=== PATIENT | male | born 1980 | race Two or more races ===

== ENCOUNTER → 2018-01-07 | Outpatient (CLI) | payer SELFPAY ==
[2018-01-07 07:47] LABS: COLLECTION METHOD DRY COLLECTION; SPECIMEN CONTAINER POLYPROPYLENE CUP; SPERM MORPHOLOGY SENT TO REFERENC LAB
[2018-01-07 09:02] LABS: COLLECTION SITE ON-SITE; DAYS ABSTINENT 3 DAYS (2-7); ROUND CELL CONC. 0.4 X10^6/mL (<5.1); SA DILUTION CNT 1 273; SA DILUTION CNT 2 303; SA DILUTION FACTOR 2; SA NONMOTILE CONCENTRATION 26.5 X10^6/mL; SA NONMOTILE COUNT1 242; SA NONMOTILE COUNT2 288; SA ROUND CELL COUNT1 3; SA ROUND CELL COUNT2 4; SA SPERM MOTILE CONC 31.1 X10^6mL; SEMEN TESTING TIME 815; SPERM CONCENTRATION 57.6 X10^6/mL (>12.0); TOTAL SPERM COUNT 126.7 X10^6 (>33.0)
[2018-01-07 09:03] LABS: SPERM PROGRESSION 4
== END ==
LOC: LAB 07:30
PROVIDERS: ATTEND Student in an Organized Health Care Education/Training Program
DX: N46.9 Male infertility, unspecified (principal)
CPT/HCPCS: 89320

== ENCOUNTER 2018-06-25 15:11 | Emergency (ER) | payer OTHER ==
[2018-06-25] MEDS ORDERED: KETOROLAC TROMETHAMINE 60 MG/2 ML SDV IM ONE (16:20)
[2018-06-25] MEDS ORDERED: GUAIFENESIN/CODEINE PHOS 100-10 MG/ 5 ML UDC PO ONE (16:20)
[2018-06-25] MEDS ORDERED: IPRATROPIUM/ALBUTEROL 0.5-2.5 MG/3 ML AMPUL NEB ONE (16:20)
--- NOTE | 2018-06-25 16:22 | ER Document Report ---
ED Respiratory Problem - General Chief Complaint: Painful Cough Stated Complaint: COUGH,VOMITING Time Seen by Provider: 06/25/18 16:14 Information source: Patient Notes: History of Present Illness Chief Complaint: [cough] Cough quality= [yellow green] sputum [] hemoptysis [ ] History obtained from [patient] 38 years old male presents today with nearly 2 weeks history of cough leading to chest wall pain whenever he coughed and also vomited couple of times when he was coughing. Currently having right flank pain 2. Denies any nausea vomiting now. Denies any fever chills. Denies any obvious wheezing. Denies any earache sore throat. Denies any abdominal pain Symptoms began: [past few days] Onset: [gradual] Timing: [constant, lasts hours, persists] Intensity: [moderate] Location: [respiratory tract] Radiation: [none] Migration: [none] Aggravating factors: [none] Relieving factors: [none] Review of Systems : All other systems negative as reviewed. CONSTITUTIONAL No Fever. EYES No eye pain. ENT No sore throat CARDIOVASCULAR No chest pain. RESPIRATORY No SOB, No wheezing, No orthopnea, No pedal edema. GI No abdominal pain, no vomiting, no diarrhea. GENITOURINARY No dysuria. SKIN No rash. NEUROLOGIC No headache. MUSCULOSKELETAL No back pain, No calf pain, No calf swelling Physical Exam CONSTITUTIONAL Vital signs reviewed, Patient has normal respiratory rate, Well appearing, Patient appears comfortable, normal stature. HEAD Atraumatic, Normocephalic. EYES Eyes are normal to inspection. ENT Ears normal to inspection, Nose examination normal. NECK No jugular venous distention. RESPIRATORY CHEST Diffuse anterior chest wall tenderness noted Breath sounds [normal], No respiratory distress. CARDIOVASCULAR RRR, No murmurs, Normal S1 S2, No rub, No gallop. ABDOMEN Abdomen is nontender, No masses, Bowel sounds normal, No distension, No peritoneal signs. BACK Normal inspection. UPPER EXTREMITY Inspection normal. LOWER EXTREMITY Inspection normal. NEURO No facial droop, normal speech. SKIN Skin is warm, Skin is dry, Skin is normal color. PSYCHIATRIC Normal affect. TRAVEL OUTSIDE OF THE [place] IN LAST 30 DAYS: No - HPI Notes: Dictated - Related Data Allergies/Adverse Reactions: No Known Allergies Allergy (Verified 06/25/18 16:09) Past Medical History - Social History Smoking Status: Never Smoker Chew tobacco use (# tins/day): No Frequency of alcohol use: Rare Drug Abuse: None Lives with: Family Family History: Reviewed & Not Pertinent Review of Systems - Review of Systems Notes: Dictated Physical Exam - Vital signs Vitals: Temp Pulse Resp BP Pulse Ox 98.3 F 97 16 128/96 H 97 06/25/18 15:43 06/25/18 15:43 06/25/18 15:43 06/25/18 15:43 06/25/18 15:43 - Notes Notes: Dictated Course - Vital Signs Vital signs: Temp Pulse Resp BP Pulse Ox 98.3 F 97 16 128/96 H 97 06/25/18 15:43 06/25/18 15:43 06/25/18 15:43 06/25/18 15:43 06/25/18 15:43 - Laboratory Laboratory results interpreted by me: 06/25/18 16:36 Urine Ascorbic Acid 40 H - Diagnostic Test Radiology reviewed: Reports reviewed - X-rays reported by radiologist as normal Discharge - Discharge Clinical Impression: Bronchitis, Acute chest wall pain Condition: Fair Disposition: HOME, SELF-CARE Instructions: Chest Wall Pain ([facility]) Prescriptions: Tramadol HCl [Ultram 50 mg Tablet] 50 mg PO Q6HP PRN #14 tablet PRN Reason: Albuterol Sulfate [Proair HFA Inhalation Aerosol 8.5 gm MDI] 2 puff IH Q4H PRN # 1 mdi PRN Reason: Baclofen [Baclofen 20 Mg Tablet] 20 mg PO TID #30 tablet Prednisone 10 mg PO ASDIR PRN #1 tab.ds.pk PRN Reason: Referrals: DWAYNE ACOSTA MD [ACTIVE STAFF] - Follow up as needed
[2018-06-25 17:05] LABS: APPEARANCE,URINE CLEAR; BILIRUBIN,URINE NEGATIVE (NEGATIVE); COLOR,URINE YELLOW; GLUCOSE, URINE NEGATIVE (NEGATIVE); KETONES,URINE NEGATIVE (NEGATIVE); LEUKOCYTE ESTERASE,URINE NEGATIVE (NEGATIVE); NITRITE,URINE NEGATIVE (NEGATIVE); PROTEIN,URINE NEGATIVE (NEGATIVE); URINE SPECIFIC GRAVITY 1.028; UROBILINOGEN,URINE NEGATIVE mg/dL (<2.0)
--- NOTE | 2018-06-25 17:25 | RADIOLOGY REPORT (SQ) ---
EXAM DESCRIPTION: CHEST 2 VIEWS COMPLETED DATE/TIME: 06/25/2018 5:16 pm REASON FOR STUDY: cough COMPARISON: None. EXAM PARAMETERS: NUMBER OF VIEWS: two views TECHNIQUE: Digital Frontal and Lateral radiographic views of the chest acquired. RADIATION DOSE: NA LIMITATIONS: none FINDINGS: LUNGS AND PLEURA: No opacities, masses or pneumothorax. No pleural effusion. MEDIASTINUM AND HILAR STRUCTURES: No masses or contour abnormalities. HEART AND VASCULAR STRUCTURES: Heart normal size. No evidence for failure. BONES: No acute findings. HARDWARE: None in the chest. OTHER: No other significant finding. IMPRESSION: NO ACUTE RADIOGRAPHIC FINDING IN THE CHEST. TECHNICAL DOCUMENTATION: JOB ID: [id number] [employer]- All Rights Reserved Reading location - IP/workstation name: [email or web address]
[2018-06-25] MEDS ORDERED: GLYCERIN (PEDIATRIC) SUPP.RECT PR ONE (18:05)
[2018-06-25 18:27] VITALS: BP 127/90
== END 2018-06-25 18:27 | disposition home or self-care (01) ==
LOC: ER 15:11
DX: J40 Bronchitis, not specified as acute or chronic (principal); R07.89 Other chest pain; R05 Cough; R11.10 Vomiting, unspecified
CPT/HCPCS: 94640; 99283; 96372; 81001; 71046; J1885; J7620

== ENCOUNTER 2018-09-17 17:25 | Emergency (ER) | payer OTHER ==
--- NOTE | 2018-09-17 18:33 | ER Document Report ---
ED Medical Screen (RME) - General Chief Complaint: Cough Stated Complaint: CHEST PAIN Time Seen by Provider: 09/17/18 18:24 Primary Care Provider: KRYSTLE MITCHELL [Primary Care Provider] - Follow up as needed Notes: 38-year-old male patient comes emerged from complaining of cough for about 3 months. There is pain in the chest with a deep breath. He was seen here on 06/25/2018 discharged with albuterol, prednisone, Ultram, and baclofen. He states the medication had no effect on his symptoms. It is a nonproductive cough. He is not a smoker. There is no history of fever. He is not on any regular med occasions. I have greeted and performed a rapid initial assessment of this patient. A comprehensive ED assessment and evaluation of the patient, analysis of test results and completion of the medical decision making process will be conducted by additional ED providers. TRAVEL OUTSIDE OF THE [place] IN LAST 30 DAYS: No - Related Data Allergies/Adverse Reactions: No Known Allergies Allergy (Verified 09/17/18 17:29) Past Medical History Renal/ Medical History: Denies: Hx Peritoneal Dialysis Past Surgical History: Reports: Hx Orthopedic Surgery Physical Exam - Vital signs Vitals: Temp Pulse Resp BP Pulse Ox 98.6 F 107 H 18 143/99 H 98 09/17/18 17:32 09/17/18 17:32 09/17/18 17:32 09/17/18 17:32 09/17/18 17:32 Course - Vital Signs Vital signs: Temp Pulse Resp BP Pulse Ox 98.6 F 107 H 18 143/99 H 98 09/17/18 17:32 09/17/18 17:32 09/17/18 17:32 09/17/18 17:32 09/17/18 17:32 Doctor's Discharge - Discharge Referrals: STEPHEN,KRYSTLE [Primary Care Provider] - Follow up as needed
--- NOTE | 2018-09-17 18:53 | RADIOLOGY REPORT (SQ) ---
EXAM DESCRIPTION: CHEST 2 VIEWS COMPLETED DATE/TIME: 09/17/2018 6:39 pm REASON FOR STUDY: cough X 3 months, non-smoker COMPARISON: 06/25/2018 EXAM PARAMETERS: NUMBER OF VIEWS: two views TECHNIQUE: Digital Frontal and Lateral radiographic views of the chest acquired. RADIATION DOSE: NA LIMITATIONS: none FINDINGS: LUNGS AND PLEURA: No opacities, masses or pneumothorax. No pleural effusion. MEDIASTINUM AND HILAR STRUCTURES: No masses or contour abnormalities. HEART AND VASCULAR STRUCTURES: Heart normal size. No evidence for failure. BONES: No acute findings. HARDWARE: None in the chest. OTHER: No other significant finding. IMPRESSION: NO ACUTE RADIOGRAPHIC FINDING IN THE CHEST. TECHNICAL DOCUMENTATION: JOB ID: [id number] [employer]- All Rights Reserved Reading location - IP/workstation name: [email or web address]
[2018-09-17 19:37] LABS: ABSOLUTE BASOPHILS # (AUTO) 0.1 10^3/uL (0.0-0.2); ABSOLUTE EOSINOPHILS # (AUTO) 0.1 10^3/uL (0.0-0.6); ABSOLUTE LYMPHOCYTES (AUTO) 2.4 10^3/uL (0.5-4.7); ABSOLUTE MONOCYTES (AUTO) 0.6 10^3/uL (0.1-1.4); ABSOLUTE NEUT (AUTO) 6.7 10^3/uL (1.7-8.2); BASOPHILS % (AUTO) 0.6 % (0-2); EOSINOPHILS % (AUTO) 1.4 % (0-6); HEMATOCRIT 48.3 % (37.9-51.0); HEMOGLOBIN 17.2 g/dL (13.5-17.0); LYMPHOCYTES % (AUTO) 24.4 % (13-45); MEAN CORPUSCULAR HEMOGLOBIN 30.3 pg (27.0-33.4); MEAN CORPUSCULAR HGB CONC 35.6 g/dL (32.0-36.0); MEAN CORPUSCULAR VOLUME 85 fl (80-97); MONOCYTES % (AUTO) 5.6 % (3-13); PLATELET COUNT 248 10^3/uL (150-450); RED BLOOD COUNT 5.66 10^6/uL (4.35-5.55); TOTAL CELLS COUNTED % (AUTO) 100 %; WHITE BLOOD COUNT 9.9 10^3/uL (4.0-10.5)
[2018-09-17 19:52] LABS: ALANINE AMINOTRANSFERASE 177 U/L (21-72); ALBUMIN 4.9 g/dL (3.5-5.0); ALKALINE PHOSPHATASE 80 U/L (38-126); ANION GAP 12 (5-19); ASPARTATE AMINO TRANSFERASE 112 U/L (17-59); BILIRUBIN,DIRECT 0.2 mg/dL (0.0-0.4); BILIRUBIN,TOTAL 0.6 mg/dL (0.2-1.3); BLOOD UREA NITROGEN 15 mg/dL (7-20); CALCIUM 9.7 mg/dL (8.4-10.2); CARBON DIOXIDE 24 mmol/L (22-30); CHLORIDE 104 mmol/L (98-107); CREATINE KINASE 433 U/L (55-170); GLUCOSE 135 mg/dL (75-110); POTASSIUM 3.9 mmol/L (3.6-5.0); SODIUM 139.6 mmol/L (137-145); TOTAL PROTEIN 7.9 g/dL (6.3-8.2)
[2018-09-17] MEDS ORDERED: ALBUTEROL SULFATE 0.083% NEB 2.5 MG/3 ML AMPUL NEB ONE (21:58)
--- NOTE | 2018-09-17 21:58 | ER Document Report ---
ED General - General Chief Complaint: Cough Stated Complaint: CHEST PAIN Time Seen by Provider: 09/17/18 18:24 Primary Care Provider: KRYSTLE MITCHELL [Primary Care Provider] - Follow up as needed Notes: 38-year-old male to the emergency department chief complaint of cough chest pain. Shortness of breath. Patient states that he was seen here 12 weeks ago. Was prescribed muscle relaxants and prednisone and albuterol. Symptoms have persisted. Occasionally does cough up blood. Has some central chest pain time now have some left posterior chest pain as well. Denies any prior history of blood clots. Father of a brain aneurysm and had a workup for that which was reportedly negative. Patient is currently disabled due to his service. No recent long trips or travel. No travel outside [place]. No known exposures to tuberculosis. Has tested negative for TB in the past. TRAVEL OUTSIDE OF THE [place] IN LAST 30 DAYS: No - HPI Onset/Duration: Constant, Waxing and waning Quality of pain: Achy Severity: Moderate Pain Level: 2 Associated symptoms: Chest pain, Nonproductive cough, Hurts to breath, Shortness of breath. denies: Fever - Related Data Allergies/Adverse Reactions: No Known Allergies Allergy (Verified 09/17/18 17:29) Past Medical History - General Information source: Patient - Social History Smoking Status: Never Smoker Chew tobacco use (# tins/day): No Frequency of alcohol use: None Lives with: Spouse/Significant other Family History: Reviewed & Not Pertinent Patient has suicidal ideation: No Patient has homicidal ideation: No Renal/ Medical History: Denies: Hx Peritoneal Dialysis Past Surgical History: Reports: Hx Orthopedic Surgery Review of Systems - Review of Systems Notes: Constitutional: denies: Chills, Diaphoresis, Fever, Malaise, Weakness EENT: denies: Eye discharge, Blurred vision, Tearing, Double vision, Nose congestion, Nose discharge, Throat swelling, Mouth pain Cardiovascular: denies: Palpitations, Heart racing, Orthopnea, +Dyspnea, +Chest pain Respiratory: +Cough, Hurts to breathe, +Wheezing, +Shortness of breath Gastrointestinal: denies: Abdominal pain, Diarrhea, Nausea, Vomiting, Black stools, bright red blood in stool Genitourinary: denies: Burning, Dysuria, Discharge, Frequency, Flank pain, Hematuria Musculoskeletal: denies: Joint pain, Joint swelling, Muscle pain, Muscle stiffness, back pain Hematologic/Lymphatic: denies: Anemia, Easy bleeding, Easy bruising, Blood clots Neurological/Psychological: denies: Confusion, Dementia, Depression, Loss of consciousness Skin: No lesions, no masses, no skin breakdown, no abscesses Physical Exam - Vital signs Vitals: Temp Pulse Resp BP Pulse Ox 98.6 F 107 H 18 143/99 H 98 09/17/18 17:32 09/17/18 17:32 09/17/18 17:32 09/17/18 17:32 09/17/18 17:32 Interpretation: Tachycardic - General General appearance: Appears well, Alert - HEENT Head: Normocephalic, Atraumatic Eyes: Normal Pupils: PERRL - Respiratory Respiratory status: No respiratory distress Chest status: Nontender Breath sounds: Nonproductive cough. No: Rales, Rhonchi, Stridor, Wheezing Chest palpation: Normal - Cardiovascular Rhythm: Tachycardia Heart sounds: Normal auscultation Murmur: No - Abdominal Inspection: Normal Distension: No distension Bowel sounds: Normal Tenderness: Nontender Organomegaly: No organomegaly - Back Back: Normal, Nontender - Extremities General upper extremity: Normal inspection, Nontender, Normal color, Normal ROM, Normal temperature General lower extremity: Normal inspection, Nontender, Normal color, Normal ROM, Normal temperature, Normal weight bearing. No: Shayna's sign - Neurological Neuro grossly intact: Yes Cognition: Normal Orientation: AAOx4 [place] Coma Scale Eye Opening: Spontaneous Eduardo Coma Scale Verbal: Oriented [place] Coma Scale Motor: Obeys Commands [place] Coma Scale Total: 15 Speech: Normal Motor strength normal: LUE, RUE, LLE, RLE Sensory: Normal - Psychological Associated symptoms: Normal affect, Normal mood - Skin Skin Temperature: Warm Skin Moisture: Dry Skin Color: Normal Course - Re-evaluation Re-evalutation: 09/17/18 23:38 Patient feels a little bit better. Still has cough. Chest x-ray is unremarkable. EKG does not show any significant signs of ischemia and is not having convincing signs of myocardial ischemia. Has no risk factors. Does not smoke. No family history. At this time I am going to start patient on some prednisone, albuterol, antibiotic and some cough medication. Patient has incidental LFTs so adding hepatitis panel. Patient has been instructed to follow-up with his primary care doctor on Saturday or return for any worsening symptoms or concerns. - Vital Signs Vital signs: Temp Pulse Resp BP Pulse Ox 98.6 F 107 H 18 143/99 H 98 09/17/18 17:32 09/17/18 17:32 09/17/18 17:32 09/17/18 17:32 09/17/18 17:32 - Laboratory Result Diagrams: 09/17/18 19:26 09/17/18 19:26 Laboratory results interpreted by me: 09/17/18 09/17/18 09/17/18 18:29 19:26 19:26 RBC 5.66 H Hgb 17.2 H Glucose 135 H POC Glucose 141 H AST 112 H ALT 177 H Creatine Kinase 433 H - EKG Interpretation by Me EKG shows normal: Sinus rhythm, [place], Intervals, QRS Complexes, ST-T Waves - She does have some T wave inversions in V5 and V6 as well as aVF Discharge - Discharge Clinical Impression: Chronic coughing, Elevated liver enzymes Condition: Good Disposition: HOME, SELF-CARE Instructions: Bronchitis ([facility]) Additional Instructions: It is uncertain what is the underlying cause of your cough. At this time we have decided to go ahead and treat you with some steroids, bronchodilators, cough suppressant as well as a antibiotic to cover common lung pathogens in the event that this is a bacterial infection. Another possibility is that you could be having some reflux causing irritation in the airway. It may be beneficial that you take an antacid such as Zantac or Pepcid twice a day as well as we begin this treatment. You also have some abnormal liver tests which were performed today. This will need repeat evaluation by your primary care doctor. In the event that you develop any worsening symptoms or concerns please return and we will reevaluate you. Prescriptions: Albuterol Sulfate [Proventil 0.5% Neb 2.5 mg/0.5 ml Vial.neb] 2.5 mg NEB Q6H PRN 7 Days #25 vial.neb PRN Reason: Albuterol Sulfate [Proair HFA Inhalation Aerosol 8.5 gm MDI] 2 puff IH Q4H PRN 7 Days #1 mdi PRN Reason: Amoxicillin Trihydrate [Amoxil 500 mg Capsule] 500 mg PO TID 10 Days #30 capsule Ibuprofen [Motrin 800 mg Tablet] 800 mg PO Q8H PRN 10 Days #30 tab PRN Reason: Prednisone [Deltasone 20 mg Tablet] 60 mg PO DAILY 5 Days #15 tablet Referrals: [facility] [Primary Care [facility]] - Follow up as needed
[2018-09-17] MEDS ORDERED: BENZONATATE 100 MG CAPSULE PO ONE (21:59)
[2018-09-17] MEDS ORDERED: IBUPROFEN 800 MG TABLET PO ONE (22:52)
[2018-09-17] MEDS ORDERED: HYDROCODONE/ACETAMINOPHEN 5-325 MG (6 TAB/ER DISP) PO PRN (23:55)
[2018-09-18 00:06] VITALS: BP 135/81
--- NOTE | 2018-09-18 08:07 | EKG REPORT ---
SEVERITY:- BORDERLINE ECG - SINUS RHYTHM BORDERLINE T ABNORMALITIES, DIFFUSE LEADS : Confirmed by: Lauren Barrett MD 18-Sep-2018 08:06:01
[2018-09-19 08:41] LABS: HEPATITIS A AB IGM Negative (Negative); HEPATITIS B CORE AB IGM Negative (Negative); HEPATITS B SURFACE ANTIGEN Negative (Negative)
[2018-09-19 10:18] LABS: HEPATITIS C VIRUS ANTIBODY <0.1 s/co ratio (0.0-0.9)
== END 2018-09-18 00:02 | disposition home or self-care (01) ==
LOC: ER 17:25
DX: R05 Cough (principal); R74.8 Abnormal levels of other serum enzymes; R07.9 Chest pain, unspecified; R06.02 Shortness of breath
CPT/HCPCS: 36415; 71046; 80053; 80074; 82550; 82962; 83690; 84484; 85025; 85379; 93005; 93010; 94640; 99284

== ENCOUNTER 2019-10-30 18:48 | Emergency (ER) | payer OTHER ==
[2019-10-30] MEDS ORDERED: ASPIRIN 81 MG TABLET, CHEWABLE PO ONE (19:29)
--- NOTE | 2019-10-30 19:36 | ER Document Report ---
ED Medical Screen (RME) - General Chief Complaint: Congestion Stated Complaint: COUGH,CONGESTION Time Seen by Provider: 10/30/19 19:25 Primary Care Provider: KRYSTLE MITCHELL [Primary Care Provider] - Follow up as needed Mode of Arrival: Ambulatory Information source: Patient Notes: 39-year-old male presented to ED for complaint of cough and congestion for 2 days. He states yesterday he started with fever increased cough and body aches all over. He states about 8 PM last night he started having severe pain to the left side of his chest. He states that he called 911 they came to his house and did a EKG and told him that his EKG was borderline and that he could go to the emergency room or if he could stay home. He states since they told him he did need to go to the emergency room he stayed home. He states the pain went from his left side of his chest up into her shoulder. He states he had no pain on his right side of his chest. He states he does have a history of GERD low back pain neck pain left wrist and ankle pain right with surgery migraines and adjustment disorder. He is maybe 2 times a year and does not smoke or use illicit drugs. He is a [employer] with disability. He states the chest pain was off and on during the night and he still has the chest pain into his left shoulder. I have greeted and performed a rapid initial assessment of this patient. A comprehensive ED assessment and evaluation of the patient, analysis of test results and completion of medical decision making process will be conducted by an additional ED providers. TRAVEL OUTSIDE OF THE [place] IN LAST 30 DAYS: No - Related Data Allergies/Adverse Reactions: No Known Allergies Allergy (Verified 09/17/18 17:29) Past Medical History Renal/ Medical History: Denies: Hx Peritoneal Dialysis Past Surgical History: Reports: Hx Orthopedic Surgery Physical Exam - Vital signs Vitals: Temp Pulse Resp BP Pulse Ox 97.9 F 96 20 144/105 H 97 10/30/19 18:52 10/30/19 18:52 10/30/19 18:52 10/30/19 18:52 10/30/19 18:52 Course - Vital Signs Vital signs: Temp Pulse Resp BP Pulse Ox 97.9 F 96 20 144/105 H 97 10/30/19 18:52 10/30/19 18:52 10/30/19 18:52 10/30/19 18:52 10/30/19 18:52 Doctor's Discharge - Discharge Referrals: [facility] [Primary Care [facility]] - Follow up as needed
[2019-10-30 20:19] LABS: ABSOLUTE MONOCYTES (AUTO) 1.1 10^3/uL (0.1-1.4); ABSOLUTE NEUT (AUTO) 6.9 10^3/uL (1.7-8.2); BASOPHILS % (AUTO) 0.1 % (0-2); EOSINOPHILS % (AUTO) 0.1 % (0-6); HEMATOCRIT 46.7 % (37.9-51.0); HEMOGLOBIN 16.3 g/dL (13.5-17.0); LYMPHOCYTES % (AUTO) 10.8 % (13-45); MEAN CORPUSCULAR HEMOGLOBIN 30.3 pg (27.0-33.4); MEAN CORPUSCULAR HGB CONC 34.9 g/dL (32.0-36.0); MEAN CORPUSCULAR VOLUME 87 fl (80-97); MONOCYTES % (AUTO) 11.8 % (3-13); PLATELET COUNT 229 10^3/uL (150-450); RED BLOOD COUNT 5.37 10^6/uL (4.35-5.55); SEGMENTED NEUTROPHILS % (AUTO) 77.2 % (42-78); TOTAL CELLS COUNTED % (AUTO) 100 %
[2019-10-30 20:21] LABS: APPEARANCE,URINE CLEAR; BILIRUBIN,URINE NEGATIVE (NEGATIVE); COLOR,URINE YELLOW; GLUCOSE, URINE NEGATIVE (NEGATIVE); KETONES,URINE NEGATIVE (NEGATIVE); PROTEIN,URINE 30 mg/dL (NEGATIVE); URINE SPECIFIC GRAVITY 1.027; UROBILINOGEN,URINE NEGATIVE mg/dL (<2.0)
[2019-10-30 20:28] LABS: ALBUMIN 4.7 g/dL (3.5-5.0); ALKALINE PHOSPHATASE 89 U/L (38-126); ANION GAP 14 (5-19); ASPARTATE AMINO TRANSFERASE 37 U/L (17-59); BILIRUBIN,DIRECT 0.3 mg/dL (0.0-0.4); BILIRUBIN,TOTAL 0.5 mg/dL (0.2-1.3); BLOOD UREA NITROGEN 16 mg/dL (7-20); CALCIUM 9.5 mg/dL (8.4-10.2); CARBON DIOXIDE 21 mmol/L (22-30); CHLORIDE 103 mmol/L (98-107); GLUCOSE 140 mg/dL (75-110); POTASSIUM 4.2 mmol/L (3.6-5.0); TOTAL PROTEIN 8.4 g/dL (6.3-8.2)
[2019-10-30 20:32] LABS: A TYPE INFLUENZA AG POSITIVE (NEGATIVE); B INFLUENZA AG NEGATIVE (NEGATIVE)
--- NOTE | 2019-10-30 20:38 | RADIOLOGY REPORT (SQ) ---
EXAM DESCRIPTION: PA and lateral radiograph of the chest CLINICAL HISTORY: 39 years Male, chest pain to left shoulder COMPARISON: Two views of the chest September 17, 2018 FINDINGS: Lungs: Lungs are clear. No pneumonia or edema. No pneumothorax or pleural effusion. Mediastinum: Cardiac and mediastinal silhouette are normal. Bones: Osseous structures are normal. IMPRESSION: No acute process. No significant interval change.
--- NOTE | 2019-10-30 22:19 | EKG REPORT ---
SEVERITY:- ABNORMAL ECG - SINUS RHYTHM NONSPECIFIC T ABNORMALITIES, INFERIOR LEADS : Confirmed by: Maurizio Morris MD 30-Oct-2019 22:19:00
[2019-10-31 00:55] VITALS: BP 128/81
--- NOTE | 2019-11-02 05:53 | ER Document Report ---
Entered by CHE PENDLETON SCRIBE 10/31/19 0002 Acting as scribe for:KVNG SERRANO IV, MD ED General - General Chief Complaint: Chest Pain Stated Complaint: COUGH,CONGESTION Time Seen by Provider: 10/30/19 19:25 Primary Care Provider: STEPHEN,KRYSTLE [Primary Care Provider] - Follow up as needed Mode of Arrival: Ambulatory Information source: Patient Notes: This 39 year old male patient presents to the emergency department today with complaints of flu-like symptoms including nasal congestion, fevers, chills, generalized body aches, and a non productive cough. Patient states the cough began two days ago and then yesterday when he woke up he "felt much worse," stating that the other symptoms began at that time. Patient reports that he has tessalon perles at home from a previous illness and it has helped his cough somewhat. TRAVEL OUTSIDE OF THE [place] IN LAST 30 DAYS: No - Related Data Allergies/Adverse Reactions: No Known Allergies Allergy (Verified 09/17/18 17:29) Home Medications: denies Past Medical History - General Information source: Patient - Social History Smoking Status: Never Smoker Cigarette use (# per day): No Chew tobacco use (# tins/day): No Frequency of alcohol use: Rare Drug Abuse: None Occupation: Realtor Lives with: Family Family History: Reviewed & Not Pertinent Patient has suicidal ideation: No Patient has homicidal ideation: No Renal/ Medical History: Denies: Hx Peritoneal Dialysis Past Surgical History: Reports: Hx Orthopedic Surgery Review of Systems - Review of Systems Constitutional: See HPI, Chills, Fever EENT: See HPI, Nose congestion Cardiovascular: No symptoms reported Respiratory: See HPI, Cough Gastrointestinal: No symptoms reported Genitourinary: No symptoms reported Male Genitourinary: No symptoms reported Musculoskeletal: See HPI, Muscle pain Skin: No symptoms reported Hematologic/Lymphatic: No symptoms reported Neurological/Psychological: No symptoms reported -: Yes All other systems reviewed and negative Physical Exam - Vital signs Vitals: Temp Pulse Resp BP Pulse Ox 97.9 F 96 20 144/105 H 97 10/30/19 18:52 10/30/19 18:52 10/30/19 18:52 10/30/19 18:52 10/30/19 18:52 - Notes Notes: Physical Exam: General: Alert, appears uncomfortable. HEENT: Normocephalic. Atraumatic. PERRL. Extraocular movements intact. Oropharyn x clear. Neck: Supple. Non-tender. Respiratory: Non-productive cough. No respiratory distress. Clear and equal breath sounds bilaterally. Cardiovascular: Regular rate and rhythm. Abdominal: Normal Inspection. Non-tender. No distension. Normal Bowel Sounds. Back: No gross abnormalities. Extremities: Moves all four extremities. Upper extremities: Normal inspection. Normal ROM. Lower extremities: Normal inspection. No edema. Normal ROM. Neurological: Normal cognition. AAOx4. Normal speech. Psychological: Normal affect. Normal Mood. Skin: Warm. Dry. Normal color. Course - Re-evaluation Re-evalutation: 10/31/19 00:26 Results of ED MSE discussed with patient. All questions were answered prior to discharge. Emergency signs and symptoms, reasons to return to the emergency department discussed with patient. - Vital Signs Vital signs: Temp Pulse Resp BP Pulse Ox 98.5 F 100 18 128/81 H 97 10/31/19 01:04 10/31/19 01:04 10/31/19 01:04 10/31/19 01:04 10/31/19 01:04 - Laboratory Result Diagrams: 10/30/19 19:55 10/30/19 19:55 Laboratory results interpreted by me: 10/30/19 10/30/19 10/30/19 19:55 19:55 19:55 Lymph % (Auto) 10.8 L Carbon Dioxide 21 L Glucose 140 H ALT 51 H Total Protein 8.4 H Urine Protein 30 H - Diagnostic Test Radiology reviewed: Reports reviewed Discharge - Discharge Clinical Impression: Influenza A Condition: Good Disposition: HOME, SELF-CARE Instructions: Influenza ([facility]) [id number] Additional Instructions: Return to the Emergency Department without delay if any worse. HOME CARE INSTRUCTIONS & INFORMATION: Thank you for choosing us for your medical needs. We hope you're satisfied with the care you received. After you leave, you must properly care for your problem and, at the same time, observe its progress. Any condition can change. Some illnesses can change rapidly over hours or days. If your condition worsens, return to the Emergency Department or see your physician promptly. ABOUT YOUR X-RAYS AND EKG'S: If you had an EKG or X-rays taken, they have been read by the Emergency Physician. The X-rays and EKG's will also be read by a Radiologist or Automatic Casting Machine Operator within 24 hours. If discrepancies are noted, you will be notified by telephone. Please be certain the ED has a correct telephone number & address where you can be reached. Also, realize that some fractures or abnormalities do not show up on initial X-rays. If your symptoms continue, see your physician. ABOUT YOUR LABORATORY TEST: If you had laboratory tests, the results have been reviewed by the Emergency Physician. Some test results (for example cultures) may not be available for several days. You will be contacted if any test result shows you need additional treatment. Please be certain the ED has a correct telephone number and address where you can be reached. ABOUT YOUR MEDICATIONS: You will receive instructions on how to take your medicine on the prescription label you receive. Additional information may be provided by the Pharmacy. If you have questions afterwards, call the ED for clarification or further instructions. Some prescribed medications may cause drowsiness. Do not perform tasks such as driving a car or operating machinery without consulting your Pharmacist. If you feel you need a refill of pain medication, your condition will need re-evaluation. Please do not call for a refill of any medication. ABOUT YOUR SIGNATURE: Signature of this document acknowledges to followin. Understanding that you received emergency treatment and that you may be released before al medical problems are known or treated. Please be certain the ED has a correct phone number & address where you can be reached. 2. Acknowledgement that you will arrange for follow-up care as recommended. 3. Authorization for the Emergency Physician to provide information to your f ollow-up Physician in order to maximize your care. AT ANY TIME, IF YOUR SYMPTOMS CHANGE SIGNIFICANTLY OR WORSEN OR YOU DEVELOP NEW SYMPTOMS, RETURN TO THE EMERGENCY DEPARTMENT IMMEDIATELY FOR RE-EVALUATION. OUR GOAL IS TO PROVIDE EXCELLENT MEDICAL CARE! WE HOPE THAT WE HAVE MET YOUR EXPECTATIONS DURING YOUR EMERGENCY DEPARTMENT VISIT AND THAT YOU FEEL YOU HAVE RECEIVED EXCELLENT CARE! Referrals: [facility] [Primary Care Provider] - Follow up as needed I personally performed the services described in the documentation, reviewed and edited the documentation which was dictated to the scribe in my presence, and it accurately records my words and actions.
== END 2019-10-31 01:03 | disposition home or self-care (01) ==
LOC: ER 18:48
DX: J11.1 Influenza due to unidentified influenza virus with other respiratory manifestations (principal); M79.10 Myalgia, unspecified site; R07.9 Chest pain, unspecified; R05 Cough; R50.9 Fever, unspecified
CPT/HCPCS: 36415; 71046; 80053; 81001; 84484; 85025; 87070; 87804; 87880; 93005; 93010; 99285

== ENCOUNTER 2020-04-14 15:31 | Emergency (ER) | payer OTHER ==
[2020-04-14 16:07] LABS: VENOUS BLOOD BASE EXCESS -3.2 mmol/L; VENOUS BLOOD PH 7.43 (7.30-7.42)
--- NOTE | 2020-04-14 16:07 | ER Document Report ---
ED General - General Chief Complaint: Nausea/Vomiting Stated Complaint: NAUSEA/VOMITING/POSSIBLE DEHYDRATION Time Seen by Provider: 04/14/20 15:34 Primary Care Provider: STEPHEN,KRYSTLE [Primary Care Provider] - Follow up as needed TRAVEL OUTSIDE OF THE [place] IN LAST 30 DAYS: No - HPI Notes: Patient is a 39-year-old male, with known COVID-19, who presents to the emergency department for evaluation of dizziness, vomiting, diarrhea. He started having symptoms 8 days ago. He was tested on Saturday, told he was positive on Saturday. He developed initially a dry cough, followed by chills and vomiting, then diarrhea. He states he has had 4 episodes of nonbloody, nonbilious emesis, 3 episodes of watery diarrhea in the last 24 hours. Prior to calling EMS, he states he "could not see." EMS found his initial blood pressure to be in the 50s. He was given nearly 2 L of lactated Ringer's in the field, as well as some Zofran, and he presents here for further evaluation. When asked about pain, the patient simply states "it feels like everything hurts." He states he feels like his body is a "raw nerve." He is still urinating. He really is not having much in the way of shortness of breath. He states he has lost his sense of smell and taste. He also notes a rash to his anterior ankles that started for 5 days ago. He states it itches. He denies any new contacts. - Related Data Allergies/Adverse Reactions: No Known Allergies Allergy (Verified 09/17/18 17:29) Past Medical History - General Information source: Patient - Social History Smoking Status: Never Smoker Family History: Reviewed & Not Pertinent Renal/ Medical History: Denies: Hx Peritoneal Dialysis GI Medical History: Reports: Hx Gastroesophageal Reflux Disease Past Surgical History: Reports: Hx Orthopedic Surgery Review of Systems - Review of Systems Constitutional: See HPI EENT: See HPI Cardiovascular: No symptoms reported Respiratory: See HPI Gastrointestinal: See HPI Genitourinary: No symptoms reported Musculoskeletal: See HPI Skin: See HPI Neurological/Psychological: No symptoms reported Physical Exam - Vital signs Vitals: Temp Pulse Resp BP Pulse Ox 98.8 F 84 16 88/56 L 95 04/14/20 15:35 04/14/20 15:35 04/14/20 15:35 04/14/20 15:35 04/14/20 15:35 - Notes Notes: This is a 39-year-old male who appears his stated age. He is mildly tachypneic with a respiratory rate between 24 and 26, but otherwise he appears his stated age, sitting upright in bed, in no acute distress. Vital signs reviewed, please refer to chart. Head is normocephalic, atraumatic. Pupils equal round, reactive to light. Oral mucosa is slightly dry. Neck is supple without meningismus. Heart is regular rate and rhythm. Lungs are clear to auscultation bilaterally. Abdomen is soft, nontender, normoactive bowel sounds throughout. Extremities without cyanosis, clubbing. Posterior calves are nontender. Peripheral pulses are equal. Skin is warm and dry. He has a vesiculopapular rash to the anterior ankles with some mild associated erythema. It appears consistent with a contact dermatitis. Patient is awake, alert, neurological exam is nonfocal. Course - Re-evaluation Re-evalutation: 04/14/20 16:12 Patient presents to the emergency department for evaluation. He was markedly hypotensive upon EMS arrival. His blood pressure was still in the 80s upon arrival. He was given 2 L of LR. He had already received Zofran in route. Labs and imaging ordered at this time, we will continue to monitor. 04/14/20 18:57 Patient feeling significantly improved. His blood pressures improved sig nificantly, maps in the 70s and 80s. Patient is told to stay hydrated, preferably with electrolyte solutions. He is to take Tylenol or ibuprofen as needed for pain, fever. He is to follow-up closely with his primary care provider next week. Otherwise, we will send him home with some Zofran. He is to return to the ED with worsening or new concerning symptoms of any sort. - Vital Signs Vital signs: Temp Pulse Resp BP Pulse Ox 97.8 F 84 16 88/56 L 95 04/14/20 15:35 04/14/20 15:35 04/14/20 15:35 04/14/20 15:35 04/14/20 15:46 - Laboratory Result Diagrams: 04/14/20 15:38 04/14/20 15:38 Laboratory results interpreted by me: 04/14/20 04/14/20 04/14/20 15:38 15:38 15:38 Plt Count 149 L VBG pH 7.43 H VBG pCO2 31.0 L Sodium 131.8 L Glucose 143 H Calcium 7.8 L ALT 86 H Total Protein 6.1 L Albumin 3.2 L - Diagnostic Test Radiology reviewed: Reports reviewed Radiology results interpreted by me: 04/14/20 18:58 Chest X-Ray 04/14/20 15:46 IMPRESSION: No evidence of acute pulmonary abnormality. Discharge - Discharge Clinical Impression: COVID-19, Nausea vomiting and diarrhea, Hyponatremia, Dehydration Condition: Stable Disposition: HOME, SELF-CARE Instructions: Acetaminophen, Antinausea Medication ([facility]), Diarrhea, Nonspecific ([facility]), Intravenous (IV) Fluids ([facility]), Vomiting ([facility]) Additional Instructions: Continue to isolate at home. Small frequent sips of fluids. You may want to consider electrolyte solution such as Gatorade, Pedialyte to fend off dehydration. Zofran as needed for severe nausea. Tylenol or ibuprofen as needed for body aches, fever. Advance to bland diet as tolerated. Follow-up with your primary care provider next week. If you develop increased difficulty breathing, worsened vomiting, decreased urination, or any other new or concerning symptoms, please return immediately to the ER for further evaluation. Referrals: [facility] [Primary Care Provider] - Follow up as needed
[2020-04-14 16:18] LABS: ABSOLUTE LYMPHOCYTES (AUTO) 1.3 10^3/uL (0.5-4.7); ABSOLUTE MONOCYTES (AUTO) 0.6 10^3/uL (0.1-1.4); ABSOLUTE NEUT (AUTO) 4.4 10^3/uL (1.7-8.2); BASOPHILS % (AUTO) 0.3 % (0-2); EOSINOPHILS % (AUTO) 0.1 % (0-6); HEMATOCRIT 41.5 % (37.9-51.0); HEMOGLOBIN 14.2 g/dL (13.5-17.0); LYMPHOCYTES % (AUTO) 20.9 % (13-45); MEAN CORPUSCULAR HEMOGLOBIN 29.4 pg (27.0-33.4); MEAN CORPUSCULAR HGB CONC 34.2 g/dL (32.0-36.0); MEAN CORPUSCULAR VOLUME 86 fl (80-97); MONOCYTES % (AUTO) 8.8 % (3-13); PLATELET COUNT 149 10^3/uL (150-450); RED BLOOD COUNT 4.83 10^6/uL (4.35-5.55); SEGMENTED NEUTROPHILS % (AUTO) 69.9 % (42-78); TOTAL CELLS COUNTED % (AUTO) 100 %; WHITE BLOOD COUNT 6.3 10^3/uL (4.0-10.5)
[2020-04-14 16:25] LABS: INTERNATIONAL RATION (INR) 0.92; PROTHROMBIN TIME 12.6 SEC (11.4-15.4)
[2020-04-14 16:37] LABS: ALBUMIN 3.2 g/dL (3.5-5.0); ALKALINE PHOSPHATASE 57 U/L (38-126); ANION GAP 8 (5-19); ASPARTATE AMINO TRANSFERASE 53 U/L (17-59); BILIRUBIN,TOTAL 0.5 mg/dL (0.2-1.3); BLOOD UREA NITROGEN 17 mg/dL (7-20); CALCIUM 7.8 mg/dL (8.4-10.2); CARBON DIOXIDE 22 mmol/L (22-30); CHLORIDE 102 mmol/L (98-107); GLUCOSE 143 mg/dL (75-110); TOTAL PROTEIN 6.1 g/dL (6.3-8.2)
[2020-04-14] MEDS: RINGERS SOLUTION,LACTATED 1,000 ML IV PRN ×2 (16:46→17:47)
--- NOTE | 2020-04-14 16:53 | RADIOLOGY REPORT (SQ) ---
EXAM DESCRIPTION: CHEST SINGLE VIEW IMAGES COMPLETED DATE/TIME: 04/14/2020 4:05 pm REASON FOR STUDY: COVID +, cough COMPARISON: 10/30/2019 EXAM PARAMETERS: NUMBER OF VIEWS: One view. TECHNIQUE: Single frontal radiographic view of the chest acquired. RADIATION DOSE: NA LIMITATIONS: None. FINDINGS: LUNGS AND PLEURA: No opacities, masses or pneumothorax. No pleural effusion. MEDIASTINUM AND HILAR STRUCTURES: No masses. Contour normal. HEART AND VASCULAR STRUCTURES: Heart normal in size. Normal vasculature. BONES: No acute findings. HARDWARE: None in the chest. OTHER: No other significant finding. IMPRESSION: No evidence of acute pulmonary abnormality. TECHNICAL DOCUMENTATION: JOB ID: [id number] 2010 [employer]- All Rights Reserved Reading location - IP/workstation name: [email or web address]
[2020-04-14] MEDS ORDERED: RINGERS SOLUTION,LACTATED 1,000 ML IV ONE (17:16)
[2020-04-14] MEDS ORDERED: KETOROLAC TROMETHAMINE INJ/PF 30 MG/1 ML SDV IV ONE (18:21)
--- NOTE | 2020-04-14 18:40 | EKG REPORT ---
SEVERITY:- BORDERLINE ECG - SINUS RHYTHM BORDERLINE T WAVE ABNORMALITIES : Confirmed by: Jacek Ballesteros 14-Apr-2020 18:38:46
[2020-04-14] MEDS ORDERED: ONDANSETRON ODT 4 MG TAB (6 TAB/ER DISP) PO PRN (18:57)
[2020-04-14 22:02] VITALS: BP 117/74
== END 2020-04-14 22:02 | disposition home or self-care (01) ==
LOC: ER 15:31
DX: U07.1 COVID-19 (principal); R11.2 Nausea with vomiting, unspecified; R19.7 Diarrhea, unspecified; E87.1 Hypo-osmolality and hyponatremia; E86.0 Dehydration; R42 Dizziness and giddiness; R05 Cough; R21 Rash and other nonspecific skin eruption; R06.82 Tachypnea, not elsewhere classified
CPT/HCPCS: 93005; 99285; 96361; 96374; 36415; 87040; 83605; 85025; 85610; 80053; 82803; 71045; 93010; J1885; J7120

== ENCOUNTER 2020-08-25 08:18 | Emergency (ER) | payer OTHER ==
[2020-08-25] MEDS ORDERED: KETOROLAC TROMETHAMINE INJ/PF 30 MG/1 ML SDV IV ONE (08:57)
[2020-08-25] MEDS ORDERED: HYDROMORPHONE HCL INJ/PF 2 MG/ML AMPULE IV PRN (08:58)
[2020-08-25 09:38] LABS: ABSOLUTE BASOPHILS # (AUTO) 0.1 10^3/uL (0.0-0.2); ABSOLUTE EOSINOPHILS # (AUTO) 0.1 10^3/uL (0.0-0.6); ABSOLUTE LYMPHOCYTES (AUTO) 3.7 10^3/uL (0.5-4.7); ABSOLUTE MONOCYTES (AUTO) 0.9 10^3/uL (0.1-1.4); ABSOLUTE NEUT (AUTO) 6.6 10^3/uL (1.7-8.2); BASOPHILS % (AUTO) 0.7 % (0-2); EOSINOPHILS % (AUTO) 1.3 % (0-6); HEMATOCRIT 40.5 % (37.9-51.0); LYMPHOCYTES % (AUTO) 32.2 % (13-45); MEAN CORPUSCULAR HEMOGLOBIN 29.5 pg (27.0-33.4); MEAN CORPUSCULAR HGB CONC 34.7 g/dL (32.0-36.0); MEAN CORPUSCULAR VOLUME 85 fl (80-97); MONOCYTES % (AUTO) 7.9 % (3-13); PLATELET COUNT 243 10^3/uL (150-450); RED BLOOD COUNT 4.77 10^6/uL (4.35-5.55); RED CELL DISTRIBUTION WIDTH 13.5 % (11.5-14.0); SEGMENTED NEUTROPHILS % (AUTO) 57.9 % (42-78); TOTAL CELLS COUNTED % (AUTO) 100 %; WHITE BLOOD COUNT 11.4 10^3/uL (4.0-10.5)
--- NOTE | 2020-08-25 09:51 | RADIOLOGY REPORT (SQ) ---
EXAM DESCRIPTION: KNEE LEFT 2 VIEWS IMAGES COMPLETED DATE/TIME: 08/25/2020 9:15 am REASON FOR STUDY: post op left knee pain COMPARISON: None. NUMBER OF VIEWS: Two views. TECHNIQUE: AP and lateral radiographic images acquired of the left knee. LIMITATIONS: None. FINDINGS: MINERALIZATION: Normal. BONES: No acute fracture or dislocation. No worrisome bone lesions. No significant osteophytes. JOINT: Large effusion. OTHER: No other significant finding. IMPRESSION: Joint effusion. TECHNICAL DOCUMENTATION: JOB ID: [id number] [employer] All Rights Reserved Reading location - IP/workstation name: [email or web address]
[2020-08-25 10:00] LABS: ANION GAP 7 (5-19); BLOOD UREA NITROGEN 17 mg/dL (7-20); CARBON DIOXIDE 22 mmol/L (22-30); CHLORIDE 105 mmol/L (98-107); GLUCOSE 124 mg/dL (75-110); POTASSIUM 3.8 mmol/L (3.6-5.0)
--- NOTE | 2020-08-25 10:02 | ER Document Report ---
ED Extremity Problem, Lower - General Chief Complaint: Knee Pain Stated Complaint: KNEE PAIN Primary Care Provider: [facility] [NO LOCAL MD] - Follow up as needed TRAVEL OUTSIDE OF THE [place] IN LAST 30 DAYS: No - HPI Notes: Chief Complaint: left knee pain Historian: History obtained from patient HPI: This is a 40 yo male c/o left knee pain and swelling since surgery 3 days ago. Pt says he had a left meniscectomy by Dr Harding on 08/25 as an outpt procedure. Pt says his pain has been severe since first day of surgery. He has elevated knee w/ ice machine w/o relief. Is taking norco and motrin also w/o relief. Took 2 pills of norco 5mg at 7:30am this morning and previous dose was around 12-1am. Pain is same location and quality as its always been, just more severe this morning. pain radiates from anterior knee to anterior thigh and down nieves. He was instructed to be WBAT and has been able to ambulate w/ a walker to the bathroom but says he really cant tolerated bearing weight. He unwrapped meche wrap around knee last night, which has been on since surgery. Denies bleeding or drainage to knee incisions. denies fever, chills, n/v, cp, sob, hemoptysis, or pe/dvt hx. Pt says he has called surgeons office w/ no response. Pt says he has a hx of having high tolerance to pain medications- has had prior orthopedic surgeries and prescribed pain medications will usually not help his pain. He recieved fentanyl and ketamine from EMS- he claims that it has not helped, though he was sleeping when I first approached him. ROS: Constitutional: no fevers. HEENT: no OBANDO, sore throat, or vision changes. CV: no chest pain or palpitations. Resp: no cough or SOB. GI: no abdominal pain, or n/v/d. : no dysuria, hematuria, or incont. MSK: left knee pain Skin: no rashes or itching. Neuro: no seizures, weakness, numbness, or confusion. Hematological: no ecchymosis or easy bleeding. Endocrine: no polyuria/polydipsia, no heat/cold intolerance. Psych: no SI/HI, AH/VH or memory loss. PMHx: Reviewed and agree as charted by RN. PSHx: Reviewed and agree as charted by RN. SOCHx: Reviewed and agree as charted by RN. FHX: No significant familial comorbid conditions directly related to patient complaint Current Medications: Reviewed and agree with the patient medications as charted by the RN. Allergies: Reviewed and agree with the listed allergies as charted by the RN Physical Exam: Vitals: Reviewed in chart as documented by RN. General: Alert and in NAD. Head: Normocephalic; atraumatic Eyes: PERRLA, Conjunctivae clear sclerae non-icteric bilat ENT: no soft palate swelling or uvular deviation Neck: trachea midline, no unilateral swelling/tenderness/lymphadenopathy CV: RRR, no M/R/G; symmetric distal pulses Resp: respirations even and unlabored, CTA bilat. GI: abd soft and nondistended. NTTP. normal BS. no masses/HSM. no CVAT bilat MSK: LLE- left knee- 3 laparscopic incisions over anterior knee w/ steristrips intact, small amount of dried blood. no active bleeding, drainage, erythema. wounds appear well approximated and good healing. diffuse mild/mod knee swelling w/ old appearing ecchymosis. no erythema to knee. pt refuses to range knee for exam. sensation intact to foot and toes. from of toes, ankle. pedal pulses 2+. cap refill <3 sec. no posterior calf tenderness/erythema Skin: warm, moist, good turgor. no rash/lesions Neuro: Alert and oriented X 4. following CN 2-12 intact. no unilateral weakness/numbness Psych: No SI/HI or AH/VH. ED Results: Medical Decision-Making: DDX- septic joint, post op complication, post op pain, knee effusion, cellulitis, hemarthrosis, DVT, ect plan- labs, inflamm markers, knee XR, doppler US LLE to r/o DVT, pain control. prn ortho consultl. - Related Data Allergies/Adverse Reactions: No Known Allergies Allergy (Verified 09/17/18 17:29) Past Medical History - Social History Smoking Status: Never Smoker Frequency of alcohol use: None Drug Abuse: None Family History: Reviewed & Not Pertinent Renal/ Medical History: Denies: Hx Peritoneal Dialysis GI Medical History: Reports: Hx Gastroesophageal Reflux Disease Past Surgical History: Reports: Hx Orthopedic Surgery Physical Exam - Vital signs Vitals: Temp Pulse Resp BP Pulse Ox 97.4 F 76 18 131/77 H 99 08/25/20 08:31 08/25/20 08:31 08/25/20 08:31 08/25/20 08:31 08/25/20 08:31 Course - Re-evaluation Re-evalutation: 08/25/20 12:48 reviewed US- no signs of DVT or SVT. CRP wnl, ESR 16. mild WBC elevation- likely reactionary from surgery/pain. discussed case w/ Dr Guaman- re-assuring workup with normal inflamm markers, neg US, and no clinical signs of infection/ischemia/compartment syndrome. Pts sy mptoms are likely due to uncontrolled post op pain. Pts pain better controlled w/ a dose of dilaudid and toradol. Will d/c pt home w/ oxycodone. scripts check done and he filled 3 days of norco 5mg on day of surgery only. pt is continuing to contact his surgeon and will arrange close f/u once he speaks with him. strict return factors discussed. - Vital Signs Vital signs: Temp Pulse Resp BP Pulse Ox 97.4 F 76 18 131/77 H 99 08/25/20 08:31 08/25/20 08:31 08/25/20 08:31 08/25/20 08:31 08/25/20 08:31 - Laboratory Results Result Diagrams: 08/25/20 09:20 08/25/20 09:20 Laboratory Results Interpreted: 08/25/20 08/25/20 09:20 09:20 WBC 11.4 H ESR 19 H Sodium 134.0 L Glucose 124 H Critical Laboratory Results Reviewed: No Critical Results - Radiology Results Critical Radiology Results Reviewed: No Critical Results Discharge - Discharge Clinical Impression: Postoperative pain of left knee Condition: Stable Disposition: HOME, SELF-CARE Instructions: Ice & Elevation ([facility]) Additional Instructions: continue to follow home instructions as given to your by orthopedics. arrange close follow up with your orthopedist JOSE. no driving on pain meds. stop the norco and take the oxycodone as prescribed. return to the ER if your condition worsens or if you get fevers, chills, vomiting, shortness of breath, chest pain, wound drainage, increased knee swelling/redness, or severe knee/leg pain. Prescriptions: Oxycodone HCl/Acetaminophen [Oxycodone-Acetaminophen 10-325] 1 each PO Q4HP PRN #12 tablet PRN Reason: Referrals: [facility] [NO LOCAL MD] - Follow up as needed
[2020-08-25 10:17] LABS: ERYTHROCYTE SEDIMENTATION RATE 19 mm/hr (0-15)
--- NOTE | 2020-08-25 11:49 | RADIOLOGY REPORT (SQ) ---
EXAM DESCRIPTION: VENOUS UNILATERAL LOWER IMAGES COMPLETED DATE/TIME: 08/25/2020 11:27 am REASON FOR STUDY: left leg swelling and pain, post op knee surgery COMPARISON: None. TECHNIQUE: Dynamic and static garcia scale and color images acquired of the left leg venous system. Se lected spectral images acquired with additional compression and augmentation maneuvers. The contralat eral common femoral vein and saphenofemoral junction were also imaged. Images stored on PACS. LIMITATIONS: None. FINDINGS: COMMON FEMORAL: Normal phasicity, compression and augmentation. No visualized echogenic ma terial on garcia scale. No defects on color images. FEMORAL: Normal compression and augmentation. No visualized echogenic material on garcia scale. No defe cts on color images. POPLITEAL: Normal compression, augmentation. No visualized echogenic material on garcia scale. No defec ts on color images. CALF VESSELS: Normal compression, augmentation. No visualized echogenic material on garcia scale. No de fects on color images. GSV and SSV: Normal compression, augmentation. No visualized echogenic material on garcia scale. No def ects on color images. ANY DEEP VENOUS INSUFFICIENCY: Not evaluated. ANY EVIDENCE OF POPLITEAL CYST: No. OTHER: No other significant finding. CONTRALATERAL COMMON FEMORAL VEIN AND SAPHENOFEMORAL JUNCTION: Normal phasicity, compression and augmentation. No visualized echogenic material on garcia scale. No de fects on color images. IMPRESSION: NO EVIDENCE DVT OR SVT IN THE LEFT LEG. TECHNICAL DOCUMENTATION: JOB ID: [id number] 2010 [employer]- All Rights Reserved Reading location - IP/workstation name: [email or web address]
[2020-08-25 13:45] VITALS: BP 142/100
== END 2020-08-25 13:45 | disposition home or self-care (01) ==
LOC: ER 08:18
DX: M25.562 Pain in left knee (principal); G89.18 Other acute postprocedural pain; D72.829 Elevated white blood cell count, unspecified
CPT/HCPCS: 99285; 96374; 96375; 36415; 85025; 85652; 86140; 80048; 93971; 73560; J1885; J1170